=== PATIENT | female | born 1945 | race Two or more races ===

== ENCOUNTER 2018-12-03 08:07 | Day surgery (SDC) | payer OTHER | END 2018-12-03 17:20 | disposition home or self-care (01) | LOC: AMB-ENDOS 08:07 | DX: C20 Malignant neoplasm of rectum (principal); D12.5 Benign neoplasm of sigmoid colon ==

== ENCOUNTER 2019-01-04 06:45 | Day surgery (SDC) | payer OTHER ==
[~2019-01-04 06:45] MED LIST: ASA81 MG PO; COZAAR100 MG PO; DILTIAZEM 24HR180 MG PO; LIPITOR20 MG PO; NEURONTIN300 MG PO; VERAPAMIL ER120 MG PO; VITAMIN D-32000 UNIT PO
[2019-01-04] MEDS ORDERED: PERCOCET 5-3251 EACH PO (10:46)
== END 2019-01-04 13:15 | disposition home or self-care (01) ==
LOC: CIR.AMB 06:45
DX: C20 Malignant neoplasm of rectum (principal)
CPT/HCPCS: 36561; C1751

== ENCOUNTER 2019-11-04 09:22 | Day surgery (SDC) | payer OTHER ==
[~2019-11-04 09:22] MED LIST changes: +PERCOCET 5-3251 EACH PO
== END 2019-11-04 12:45 | disposition home or self-care (01) ==
LOC: AMB-ENDOS 09:22 → ADM 14:15
DX: K62.89 Other specified diseases of anus and rectum (principal)

== ENCOUNTER 2021-08-16 06:00 | Day surgery (SDC) | payer OTHER | END 2021-08-16 10:00 | disposition home or self-care (01) | LOC: AMB-ENDOS 06:00 → CIR.AMB 13:15 | PROVIDERS: ATTEND Surgery | DX: D12.8 Benign neoplasm of rectum (principal); Z20.822 Contact with and (suspected) exposure to COVID-19 ==

== ENCOUNTER 2021-10-29 07:21 | Day surgery (SDC) | payer OTHER ==
[2021-10-29] MEDS ORDERED: ULTRACET PO (11:25)
== END 2021-10-29 15:11 | disposition home or self-care (01) ==
LOC: CIR.AMB 07:21
PROVIDERS: ATTEND Surgery
DX: C20 Malignant neoplasm of rectum (principal); Z20.822 Contact with and (suspected) exposure to COVID-19